=== PATIENT | male | born 1930 | race Caucasian/White ===

== ENCOUNTER 2016-09-11 11:20 | Outpatient (CLI) | payer MEDICARE, OTHER | END 2016-09-11 23:59 | DX: D64.9 Anemia, unspecified (principal); Z79.899 Other long term (current) drug therapy; M19.90 Unspecified osteoarthritis, unspecified site ==

== ENCOUNTER 2017-08-12 10:58 | Outpatient (CLI) | payer MEDICARE, OTHER | END 2017-08-12 10:59 | disposition home or self-care (01) | LOC: LAB.N 10:58 | PROVIDERS: ATTEND Urology | DX: Z85.46 Personal history of malignant neoplasm of prostate (principal) | CPT/HCPCS: 36415; 84153 ==

== ENCOUNTER 2017-10-09 08:00 | Outpatient (CLI) | payer MEDICARE, OTHER ==
[2017-10-09 13:08] LABS: BASOPHILS % (AUTO) 0.2 %; EOSINOPHILS # (AUTO) 0.1 10^3/uL (0.0-0.7); EOSINOPHILS % (AUTO) 1.9 %; HGB - HEMOGLOBIN 13.9 g/dL (14.0-18.0); LYMPHOCYTES # (AUTO) 1.1 10^3/uL (1.5-3.5); LYMPHOCYTES % (AUTO) 29.9 %; MEAN CORPUSCULAR HGB CONC 33.9 g/dL (32.0-36.0); MEAN CORPUSCULAR VOLUME 97.4 fL (80.0-94.0); MEAN PLATELET VOLUME 7.9 fL (7.4-11.4); MONOCYTES # (AUTO) 0.4 10^3/uL (0.0-1.0); MONOCYTES % (AUTO) 11.9 %; NEUTROPHILS # (AUTO) 2.1 10^3/uL (1.5-6.6); NEUTROPHILS % (AUTO) 56.1 %; PLT - PLATELET COUNT 179 10^3/uL (130-450); RED CELL DISTRIBUTION WIDTH 12.8 % (12.0-15.0); WHITE BLOOD COUNT 3.7 x10^3/uL (4.8-10.8)
[2017-10-09 13:09] LABS: ALBUMIN 4.3 g/dL (3.2-5.5); ALBUMIN/GLOBULIN RATIO 1.4 (1.0-2.2); CALCIUM 9.1 mg/dL (8.5-10.3); CREATININE 1.1 mg/dL (0.6-1.2); TOTAL PROTEIN 7.3 g/dL (6.7-8.2)
== END 2017-10-09 08:01 | disposition home or self-care (01) ==
LOC: LAB.N 08:00
PROVIDERS: ATTEND Physician Assistant Medical
DX: Z79.899 Other long term (current) drug therapy (principal)
CPT/HCPCS: 36415; 80053; 85025

== ENCOUNTER 2017-11-02 12:18 | Outpatient (CLI) | payer MEDICARE, OTHER ==
[2017-11-02] MEDS ORDERED: GADOBUTROL 10 MMOL/10 ML VIAL ONE (13:25)
[2017-11-02] MEDS ORDERED: GADOBUTROL 10 MMOL/10 ML VIAL IV ONE (13:46)
--- NOTE | 2017-11-02 16:59 | MRI Report ---
MRI LUMBAR SPINE WITHOUT AND WITH CONTRAST EXAM DATE: 11/02/2017. INDICATION: 87-year-old male with bilateral leg pain. History of osteoarthritis. History of prostate cancer. TECHNIQUE: 1. Sagittal STIR, T1 and T2. 2. Axial T1 and T2. 3. 8 cc IV Gadavist. T1 axial and fat-saturated T1 sagittal. COMPARISON: None. FINDINGS: There appear to be 5, wwb-wul-giqilai, lumbar-type vertebrae. Axial images demonstrate a minor, dextroconvex scoliosis with apex at about L4. In the sagittal plane there is straightening of the lumbar alignment with minimal lumbar lordosis. There is minor retrolis thesis of L3 on L4. Alignment is otherwise unremarkable. There is mild to moderate anterior wedging of the L4 vertebral body, consistent with the sequela of o ld healed superior endplate compression fracture. No retropulsion is demonstrated. There is minimal a nterior wedging of T12 and L1. The vertebral body heights are otherwise preserved. No evidence of rec ent compression fracture. Numerous, T1/T2-hyperintense foci are demonstrated throughout the imaged spine, consistent with inhom ogeneous fatty marrow replacement and/or multiple intraosseous hemangiomata. The large, T1-hyperinten se lesion replacing almost all of the marrow signal in the left side of the L2 vertebral body represe nts an hemangioma. There is minor, reactive marrow edema surrounding a Schmorl node deformity in the inferior endplate of T11 with enhancement. Marrow signal intensity is otherwise unremarkable. In part icular, no pathologic marrow signal is identified. The conus terminates in an appropriate fashion at about the L1-L2 disk level. There is no abnormal th ickening or lipomatous change of the filum. Axial Images: L1-L2: Minimal disk bulge. No spinal canal or foraminal stenosis. L2-L3: Minor, intraforaminal disk bulge or protrusion bilaterally. There appears to be early degenera tive facet arthrosis. Minimal bony hypertrophy. Mild redundancy of the ligamenta flava. Mass effect o n the dorsal aspect of the thecal sac without significant-appearing spinal stenosis. Mild foraminal n arrowing. L3-L4: Retrolisthesis. Circumferential disk bulge with associated minor posterior osteophyte. Broad-b ased, intra-/extraforaminal extrusions with associated, minor intraforaminal osteophyte. Degenerative facet arthrosis with enhf-et-kyzsnsvu bony hypertrophy. Moderate to marked redundancy of the ligamen ta flava. There is subarticular zone narrowing bilaterally, worse on the right than the left. However , no definite impingement of traversing right L4 nerve root is demonstrated. No significant central z one spinal stenosis. Lutl-jo-clwnjukw foraminal stenoses. On the left, a bony spur arising from the s uperior articular process of L4 projects into the foramen and appears to contact the posterior surfac e of the exiting L3 nerve root. The perineural fat is partially effaced. No edith compression of the nerve root is identified. L4-L5: Small left intra-/extraforaminal protrusion. Larger, posterolateral and intra-/extraforaminal protrusion. Degenerative facet arthrosis with mild bony hypertrophy. Mild to moderate redundancy of t he ligamenta flava. No spinal stenosis. Mild left and mild to moderate right foraminal stenoses. The L4 nerve roots appear to exit noncompressed. L5-S1: Broad-based intra-/extraforaminal extrusions with associated, minor intraforaminal osteophyte. Early degenerative facet arthrosis. No significant bony hypertrophy. No spinal stenosis. Minimal for aminal narrowing. No abnormal enhancement is demonstrated. IMPRESSION: 1. Tkbm-fl-terpgiva anterior wedging of L4 vertebral body, consistent with the sequela of old healed superior endplate compression fracture. There is minimal anterior wedging of T12 and L1. No evidence of recent lumbar spine compression fracture. 2. Degenerative disk and facet changes are seen throughout the lumbar spine as documented in detail a teressa. There are associated central, subarticular and foraminal zone stenoses. The most significant st enoses are as follows: A. At L3-L4 there is right greater than left subarticular zone (lateral recess) stenosis. However, no definite impingement of traversing right L4 nerve root is demonstrated. B. At L3-L4 on the left a bony spur arising from the superior articular process of L4 projects into t he foramen and contacts the posterior surface of the left L3 nerve root. This is a potential cause fo r irritation or mild impingement of the left L3 nerve root. Recommend clinical correlation for possib le left L3 radiculitis/radiculopathy. 3. No other significant stenosis is demonstrated and no other potential neural irritation or impingem ent is identified. 4. There is mild to moderately advanced fatty atrophy in the posterior paraspinal musculature. Referring Provider Line: [phone] SITE ID: [id number]
== END 2017-11-02 12:19 | disposition home or self-care (01) ==
LOC: DI 12:18
PROVIDERS: ATTEND Physician Assistant Medical
DX: M51.26 Other intervertebral disc displacement, lumbar region (principal); M47.896 Other spondylosis, lumbar region; M51.36 Other intervertebral disc degeneration, lumbar region; M48.56XA Collapsed vertebra, not elsewhere classified, lumbar region, initial encounter for fracture; M48.54XA Collapsed vertebra, not elsewhere classified, thoracic region, initial encounter for fracture; M43.16 Spondylolisthesis, lumbar region; M47.897 Other spondylosis, lumbosacral region; M48.061 Spinal stenosis, lumbar region without neurogenic claudication
CPT/HCPCS: 72158; A9585

== ENCOUNTER 2018-11-04 08:00 | Outpatient (CLI) | payer MEDICARE, OTHER ==
[2018-11-04 14:32] LABS: BASOPHILS % (AUTO) 0.4 %; EOSINOPHILS % (AUTO) 1.8 %; HGB - HEMOGLOBIN 13.9 g/dL (14.0-18.0); LYMPHOCYTES % (AUTO) 34.8 %; MEAN CORPUSCULAR HEMOGLOBIN 32.5 pg (27.0-31.0); MEAN CORPUSCULAR HGB CONC 33.4 g/dL (32.0-36.0); MEAN CORPUSCULAR VOLUME 97.4 fL (80.0-94.0); MEAN PLATELET VOLUME 8.6 fL (7.4-11.4); MONOCYTES % (AUTO) 12.1 %; NEUTROPHILS % (AUTO) 50.9 %; PLT - PLATELET COUNT 184 10^3/uL (130-450); RED BLOOD COUNT 4.28 10^6/uL (4.70-6.10); RED CELL DISTRIBUTION WIDTH 12.4 % (12.0-15.0); WHITE BLOOD COUNT 2.7 x10^3/uL (4.8-10.8)
[2018-11-04 14:48] LABS: ALBUMIN 4.2 g/dL (3.2-5.5); ALBUMIN/GLOBULIN RATIO 1.4 (1.0-2.2); ALKALINE PHOSPHATASE 62 IU/L (42-121); ALT ALANINE AMINOTRANSFERASE 15 IU/L (10-60); AST ASPARTATE AMINOTRANSFERASE 20 IU/L (10-42); BILIRUBIN,TOTAL 0.8 mg/dL (0.2-1.0); BUN - BLOOD UREA NITROGEN 14 mg/dL (6-20); CALCIUM 9.2 mg/dL (8.5-10.3); CARBON DIOXIDE - CO2 25 mmol/L (21-32); CHLORIDE 100 mmol/L (101-111); CHOLESTEROL 142 mg/dL; GFR - MDRD 71 (>89); GLUCOSE 96 mg/dL (70-100); HDL CHOLESTEROL 67 mg/dL; LDL CHOLESTEROL,CALCULATED 67 mg/dL; SODIUM 137 mmol/L (135-145); TOTAL PROTEIN 7.1 g/dL (6.7-8.2); VLDL CHOLESTEROL 8 mg/dL
[2018-11-04 14:49] LABS: CHOL/HDL RATIO 2.1 (<5.0)
[2018-11-04 14:53] LABS: PSA FREE 0.921 ng/mL (0.16-2.81)
[2018-11-04 14:54] LABS: PSA TOTAL 11.739 ng/mL (0.000-2.000)
[2018-11-04 15:59] LABS: ABNORMAL LYMPHS % (MANUAL) 0 %; BAND NEUTROPHILS % (MANUAL) 2 %; LYMPHOCYTES % (MANUAL) 26 %; MONOCYTES # (MANUAL) 0.3 10^3/uL (0.0-1.0); NEUTROPHILS # (MANUAL) 1.4 10^3/uL (1.5-6.6); NEUTROPHILS % (MANUAL) 50 %
[2018-11-04 16:00] LABS: DIFFERENTIAL COMMENT MANUAL DIFFERENTIAL; PLATELET ESTIMATE, MANUAL NORMAL (130-450,000) (NORMAL); PLATELET MORPHOLOGY NORMAL APPEARANCE (NORMAL); RBC MORPHOLOGY (MULTIPLE) NORMAL APPEARANCE (NORMAL)
== END 2018-11-04 23:59 | disposition home or self-care (01) ==
LOC: LAB.N 08:00
PROVIDERS: ATTEND Nurse Practitioner
DX: Z00.00 Encounter for general adult medical examination without abnormal findings (principal); C61 Malignant neoplasm of prostate; Z79.899 Other long term (current) drug therapy
CPT/HCPCS: 36415; 80053; 80061; 83721; 84153; 84154; 84443; 85025

== ENCOUNTER 2018-12-07 09:30 | Outpatient (CLI) | payer MEDICARE, OTHER ==
[2018-12-07] MEDS ORDERED: IOVERSOL 320 50 ML VIAL ONE (09:49)
[2018-12-07] MEDS ORDERED: IOVERSOL 320 100 ML VIAL IVP ONE ×2 (09:49→11:43)
[2018-12-07] MEDS ORDERED: IOVERSOL 320 50 ML VIAL PO ONE (11:43)
--- NOTE | 2018-12-07 14:51 | CT Report ---
Reason: PROSTATE CA Procedure Date: 12/07/2018 Accession Number: [id number] / [id number] Procedure: CT - Abdomen/Pelvis W CPT Code: FULL RESULT: EXAM: CT ABDOMEN AND PELVIS EXAM DATE: 12/07/2018 11:42 AM. CLINICAL HISTORY: Prostate CA. COMPARISONS: LUMBAR SPINE W/O 11/02/2017 12:45 PM BONE SCAN 12/07/2018 12:27 PM. TECHNIQUE: Routine helical CT imaging was performed through the abdomen and pelvis. IV contrast: OPTI 320 100 mL. Enteric contrast: Yes. Reconstructions: Coronal and sagittal. In accordance with CT protocol optimization, one or more of the following dose reduction techniques were utilized for this exam: automated exposure control, adjustment of mA and/or KV based on patient size, or use of iterative reconstructive technique. FINDINGS: Lung Bases: Bilateral dependent changes at the lung bases, scarring would be difficult to exclude. Liver: There are bilateral hepatic hypodensities which are too small to characterize. The left lobe of the liver is diminutive in size. Gallbladder/Bile Ducts: Unremarkable. Spleen: Normal. Pancreas: Normal. Adrenal Glands: Normal. Kidneys: Normal. No masses or hydronephrosis. Peritoneal Cavity/Bowel: There is no bowel obstruction or free fluid or free air. There is no lymphadenopathy. Pelvic Organs: Arising from the inferior right portion of the prostate is a 3.6 x 3.2 cm hypoenhancing relatively to the remaining prostate soft tissue mass as seen on image 88 series 3, relationship to prostate is best seen on image 31 of series 5 coronally. There is no pelvic lymphadenopathy by size criteria. Vasculature: No aneurysms or other significant abnormality. Bones: L2 vertebral body hemangioma. Centrally within the L5 vertebral body is a questionable lytic lesion which appeared T2 hyperintense on the 2018 MRI that also demonstrated diffuse abnormality of marrow signal. The patient is osteopenic. While no definite aggressive osseous lesions are seen, assessment for disease in this setting is difficult. Other: None. IMPRESSION: Masslike nodule arising from the prostate as described. Limited assessment due to markedly decreased sensitivity for osseous metastases. See bone scan performed today. RADIA
--- NOTE | 2018-12-07 16:21 | Nuclear Medicine Report ---
Reason: PROSTATE CANCER Procedure Date: 12/07/2018 Accession Number: [id number] / [id number] Procedure: NM - Bone Whole Body CPT Code: FULL RESULT: EXAM: BONE SCAN EXAM DATE: 12/07/2018 02:10 PM. CLINICAL HISTORY: PROSTATE CANCER. COMPARISON: ABDOMEN/PELVIS W/ 12/07/2018 11:34 AM (report not available). TECHNIQUE: Following the intravenous administration of 31 mCi of technetium 99m MDP and an appropriate delay, a whole-body scan was performed in anterior and posterior projections. Site-specific spot views of the region of interest were obtained in various projections. FINDINGS: Exam Quality: Normal overall osseous radiotracer uptake. Physiological tracer uptake in bilateral collecting systems. Skull: No focal uptake. Thorax: There is a small focus of mild uptake corresponding with an old fracture deformity of the right anterior fifth rib. There is positive uptake within the soft tissue nodule adjacent to the anterior fifth rib. Pelvis: No focal lesions. Spine: No suspicious focal uptake in the cervical or thoracic or lumbar spine. There is degenerative right-sided L5-S1 facet uptake. Extremities: There is increased uptake in both knees, presumably degenerative. IMPRESSION: No findings highly concerning for skeletal metastatic disease. RADIA
== END 2018-12-07 09:31 | disposition home or self-care (01) ==
LOC: DI 09:30
PROVIDERS: ATTEND Internal Medicine Hematology & Oncology
DX: C61 Malignant neoplasm of prostate (principal)
CPT/HCPCS: 74177; 78306; Q9967

== ENCOUNTER 2019-04-18 10:29 | Outpatient (CLI) | payer MEDICARE, OTHER ==
--- NOTE | 2019-04-18 13:39 | Mammography Report ---
Reason: BREAST LUMP Procedure Date: 04/18/2019 Accession Number: [id number] / [id number] Procedure: [facility] - Diagnostic Dig Bilat CPT Code: Final Report FULL RESULT: EXAM: Diagnostic Dig Bilat DATE: 04/18/2019 11:30 AM CLINICAL HISTORY: EXAM: Diagnostic Dig Bilat DATE: 04/18/2019 11:30 AM CLINICAL HISTORY: The patient is an 88-year-old male presenting with a palpable lump in the left retroareolar position. TECHNIQUE: (B) - Bilateral CC and MLO views were obtained. COMPARISON: None PARENCHYMAL PATTERN: FINDINGS: RIGHT BREAST: There are no suspicious masses, calcifications or areas of distortion. LEFT BREAST: There is a hyperdense lobulated mass in the subareolar position spanning 1.6 cm, at the site of palpable concern. The remainder of the breast is unremarkable. LEFT BREAST ULTRASOUND: TECHNIQUE: A high frequency transducer was utilized to evaluate the area of palpable concern (subareolar position) and the axilla. Doppler performed. Digital Photographer static images obtained. FINDINGS: There is a hypoechoic, lobulated vascular mass in the retroareolar position measuring approximately 16 x 13 x 15 mm. This corresponds to the palpable and mammographic finding. Recommend targeted pathologic evaluation, amenable to ultrasound-guided biopsy. There are no enlarged axillary lymph nodes. IMPRESSION: Suspicious findings. BI-RADS category 4. RECOMMENDATION: (BIOPSY) - recommend targeted ultrasound-guided core biopsy. BI-RADS CATEGORY: (4) - Suspicious. STANDARD QUALIFYING STATEMENTS: 1. This examination was not reviewed with the aid of Computer-Aided Detection (CAD). 2. A negative or benign imaging report should not preclude biopsy if clinically suspicious findings are present. 3. Dense breasts may obscure an underlying neoplasm.
== END 2019-04-18 10:30 | disposition home or self-care (01) ==
LOC: DI 10:29
PROVIDERS: ATTEND Nurse Practitioner
DX: N63.42 Unspecified lump in left breast, subareolar (principal); C61 Malignant neoplasm of prostate; Z85.828 Personal history of other malignant neoplasm of skin
CPT/HCPCS: 76642; 77066

== ENCOUNTER 2019-05-03 11:18 | Outpatient (CLI) | payer MEDICARE, OTHER ==
[2019-05-03] MEDS ORDERED: BUFFERED LIDOCAINE 10 ML SYRINGE ONE ×2 (11:38→12:31)
[2019-05-03] MEDS: BUFFERED LIDOCAINE 10 ML SYRINGE IU ONE (13:40)
--- NOTE | 2019-05-03 15:44 | Ultrasound Report ---
Reason: ABNORMAL MAMMOGRAM Procedure Date: 05/03/2019 Accession Number: [id number] / [id number] Procedure: US - Biopsy Breast Core CPT Code: Final Report FULL RESULT: PROCEDURE: Ultrasound-guided needle biopsy left breast mass. CLINICAL DATA: Targeted mass measuring 1.6 cm with smooth margins in the 12 o'clock axis of the left breast. Informed consent was obtained. Using standard aseptic technique, both 1% buffered lidocaine and Sensorcaine were injected into the left breast for local anesthesia. A small garrett was made in the skin with a #11 blade. A 12-gauge [employer] vacuum-assisted device was used to obtain 3 specimens. A specialized biopsy marker clip was placed into the biopsy cavity under ultrasound guidance. The patient was taken to separate mammography machine and a two-view digital mammography was performed to verify the clip placement and any complications. The mammography showed clip placement within the mass. The wound was dressed and ice applied. The patient was observed for approximately 15 minutes, then was discharged from diagnostic imaging Department in good condition following instructions on wound care and obtaining biopsy results. The patient is scheduled to receive the biopsy results from the referring physician. The tissue was sent for histologic analysis. IMPRESSION: Ultrasound-guided biopsy of the left breast. AN ADDENDUM WILL BE MADE TO THIS REPORT WHEN PATHOLOGY IS REVIEWED TO ESTABLISH CONCORDANCE.
== END 2019-05-03 11:19 | disposition home or self-care (01) ==
LOC: DI 11:18
PROVIDERS: ATTEND Nurse Practitioner
DX: C50.822 Malignant neoplasm of overlapping sites of left male breast (principal); Z17.0 Estrogen receptor positive status [ER+]
CPT/HCPCS: 19083

== ENCOUNTER 2019-05-26 13:30 | Outpatient (CLI) | payer MEDICARE, OTHER ==
--- NOTE | 2019-05-26 15:59 | XRAY Report ---
Reason: LT BREAST CANCER Procedure Date: 05/26/2019 Accession Number: [id number] / [id number] Procedure: XR - Chest 2 View X-Ray CPT Code: 96327 Final Report FULL RESULT: EXAM: CHEST RADIOGRAPHY EXAM DATE: 05/26/2019 02:42 PM. CLINICAL HISTORY: Breast cancer diagnosed one month ago. Planned surgery. No new symptoms. COMPARISON: CHEST 2 VIEW PA/LAT 03/28/2014 11:05 AM. TECHNIQUE: 2 views. FINDINGS: Lungs/Pleura: No focal opacities evident. No pleural effusion. No pneumothorax. Normal volumes. Mediastinum: Heart and mediastinal contours are unremarkable. Other: Redemonstration of apparent colonic interposition underneath the right hemidiaphragm. IMPRESSION: No acute cardiopulmonary abnormality. RADIA
== END 2019-05-26 13:31 | disposition home or self-care (01) ==
LOC: DI 13:30
PROVIDERS: ATTEND Surgery
DX: Z01.818 Encounter for other preprocedural examination (principal); C50.922 Malignant neoplasm of unspecified site of left male breast
CPT/HCPCS: 71046; 93005

== ENCOUNTER 2019-06-07 07:55 | Day surgery (SDC) | payer MEDICARE, OTHER ==
[~2019-06-07 07:55] MED LIST: BUPIVACAINE 0.5% PF 30 ML VIAL ONE; LIDOCAINE 1%-EPI 1:100000 20 ML MDV ONE
[2019-06-07] MEDS ORDERED: CEFAZOLIN SODIUM IN 0.9 % NACL 2 GM/100 ML BAG IV ONE (08:07)
[2019-06-07] MEDS ORDERED: LACTATED RINGERS 1,000 ML IV ONE ×2 (08:13→13:50)
--- NOTE | 2019-06-07 09:25 | ANESTHESIA ---
Pre-Anesthesia VS, & Labs - Diagnosis Left breast cancer - Procedure Left simple mastectomy, sentinel node biopsy Vital Signs: Temp Pulse Resp BP Pulse Ox 36.4 C L 92 16 169/88 H 97 06/07/19 08:14 06/07/19 08:14 06/07/19 08:14 06/07/19 08:14 06/07/19 08:14 Height 5 ft 10 in Weight (kg) 79.7 kg Body Mass Index 23.9 - NPO >8 hours, Other (4 oz coffee at 0600) Home Medications and Allergies Home Medications: Ambulatory Orders Zolpidem [Ambien] 5 - 10 mg PO HS PRN 05/26/19 Hydrocodone/Acetaminophen [Hydrocodone-Acetamin 10-325 mg] 1 tab PO PRN PRN 11/30/18 Aspirin 81 mg PO DAILY 12/21/18 Cyanocobalamin (Vitamin B-12) [Vitamin B-12] 1,000 mcg PO DAILY 12/21/18 Zolpidem [Ambien] 5 - 10 mg PO HS PRN 05/26/19 Allergies/Adverse Reactions: Allergies Allergy/AdvReac Type Severity Reaction Status Date / Time No Known Drug Allergies Allergy Verified 03/22/19 15:25 Anes History & Medical History - Anesthetic History Anesthesia Complications: reports: No previous complications Family history of Anesthesia Complications: Denies Family history of Malignant Hyperthermia: Denies - Medical History Cardiovascular: reports: None Pulmonary: reports: None Gastrointestinal: reports: None Urinary: reports: None Neuro: reports: None Musculoskeletal: reports: Osteoarthritis Endocrine/Autoimmune: reports: None Blood Disorders: reports: Anemia Skin: reports: None Smoking Status: Former smoker Psychosocial: reports: No issues indicated - Surgical History General: Colonoscopy Eyes Ears Nose Throat (EENT): Cataracts, Tonsil/Adenoidectomy Cardiothoracic:  Urologic: Prostatic surgery Exam General: Alert, Oriented x3, Cooperative Dental: TMJ, Partials Upper Mouth Opening: Greater than 4 Fingerbreadths Neck Mobility: Normal Mallampati classification: II Thyromental Distance: greater than 6 cm Respiratory: Lungs clear Cardiovascular: Regular rate Neurological: Normal speech Mental/Cognitive Status: Alert/Oriented X3 Cognitive Status: Within normal limits Plan Anesthesia Type: General Consent for Procedure(s) Verified and Reviewed: Yes Code Status: Attempt Resuscitation ASA classification: 2-Mild systemic disease Is this case an emergency?: No
[2019-06-07] MEDS ORDERED: LIDOCAINE 1%-EPI 1:100000 20 ML MDV ONE (11:31)
[2019-06-07] MEDS ORDERED: BUPIVACAINE 0.5% PF 30 ML VIAL ONE (11:31)
[2019-06-07] MEDS ORDERED: ACETAMINOPHEN 1,000 MG/100 ML 100 ML IV ONE ×2 (12:04→13:04)
[2019-06-07] MEDS ORDERED: fentaNYL 100 MCG/2 ML VIAL IVP ONE (12:04)
[2019-06-07] MEDS ORDERED: PHENYLEPHRINE 10 MG/ML VIAL IV ONE (12:04)
[2019-06-07] MEDS ORDERED: SUCCINYLCHOLINE 200 MG/10 ML VIAL IVP ONE (12:04)
[2019-06-07] MEDS ORDERED: MIDAZOLAM 2 MG/2 ML VIAL IVP ONE (12:04)
[2019-06-07] MEDS ORDERED: DEXAMETHASONE 4 MG/ML VIAL IVP ONE (12:04)
[2019-06-07] MEDS ORDERED: HYDROmorphone 1 MG/ML CARPUJECT IVP ONE (12:04)
[2019-06-07] MEDS ORDERED: LIDOCAINE-MPF 2% 5 ML VIAL IM ONE (12:04)
[2019-06-07] MEDS ORDERED: ONDANSETRON 4 MG/2 ML VIAL IVP ONE (12:04)
[2019-06-07] MEDS ORDERED: PROPOFOL 200 MG/20 ML VIAL IVP ONE (12:04)
--- NOTE | 2019-06-07 12:17 | Nuclear Medicine Report ---
Reason: LT BREAST CA Procedure Date: 06/07/2019 Accession Number: [id number] / [id number] Procedure: NM - Lymph Node Scintigraphy CPT Code: Final Report FULL RESULT: EXAM: SENTINEL LYMPH NODE RADIOTRACER INJECTION WITH IMAGING EXAM DATE: 06/07/2019 11:20 AM. CLINICAL HISTORY: Left breast cancer. COMPARISON: None. TECHNIQUE: The injection site of the left breast was cleansed according to protocol. Next, a total of 0.45 mCi Tc-99m sulfur colloid in 1 cc saline was injected into the same site. After appropriate delay, the patient was imaged according to the protocol. FINDINGS: Approximately 30 minutes following injection a single axillary lymph node is visualized with progressive uptake at 45 and 60 minutes. The patient tolerated the procedure well. IMPRESSION: 1. [place] lymph node injection, without complication. 2. 1 focus in the axillary drainage pathway, compatible with sentinel lymph node. RADIA
[2019-06-07] MEDS ORDERED: BUPIVACAINE 0.5% PF 10 ML VIAL SUBQ ONE (12:44)
[2019-06-07] MEDS ORDERED: LIDOCAINE 1%-EPI 1:100000 20 ML MDV SUBQ ONE (12:44)
--- NOTE | 2019-06-07 13:18 | OPERATIVE REPORT ---
Operative Report - General Procedure Date: 06/07/19 Planned Procedure: Left modified radical mastectomy Pre-Op Diagnosis: Biopsy-proven left breast cancer Procedure Performed: Left modified radical mastectomy Post Op Diagnosis: Biopsy-proven left breast cancer - Procedure Note Primary Surgeon: Teresa Anesthesia Provider: FER Pal Anesthesia Technique: General ET tube, Local, Regional block Pathology: Left breast in formalin to pathology Estimated Blood Loss (mL): 25 Drain/Tube Type: Roni drain (19 F Black drain in the inframammary pocket) Indications: Biopsy proven left breast cancer Findings: No adherence to the pectoralis muscle Complications: None apparent - Other Other Information/Narrative: After obtaining informed consent, the patient is brought to the operating room and placed in the supine position on the operating table. Following successful induction of general endotracheal anesthesia, appropriate padding of all bony prominences, and placement of appropriate monitors, the left chest and axilla were prepped and draped in standard surgical fashion. A timeout was held per scope protocol. All elements of the surgical safety checklist were followed before, during, and after the procedure. An elliptical incision was fashioned around the nipple areolar complex to include the palpable mass and specifically the skin over the palpable mass. This screw was created with a 15 blade scalpel. The breast tissue was then carefully dissected off of the dermis anteriorly superiorly to approximately 3 cm inferior to the clavicle medially, to the sternum, inferiorly to the inframammary fold, and laterally to the border of the latissimus muscle. The breast was then removed in a medial to lateral fashion being careful to include the retromammary bursa and the pectoral fascia. It was peeled off until the specimen was held only by the axillary tail. We carefully included this part in the specimen by performing a level 1 and level 2 axillary dissection. All afferent and efferent lymphatics and vasculature were addressed with clips prior to division. The axillary fat pad and dayana pocket was carefully freed from the pectoralis muscle anteriorly and medially, the chest wall medially the latissimus muscle posteriorly and the skin more laterally. The axillary vein was identified and tributaries to the axillary vein were ligated with clips the axillary vein itself was not skeletonized. The long thoracic nerve of Zapata was identified in the posterior portion of the mid axillary line and was carefully preserved. Once the specimen was completely freed, the specimen was passed from the table. The wound was checked for hemostasis and irrigated with warm water. Once we were satisfied that we obtained hemostasis, A 19 Sinhala Roni drain was placed in the inframammary pocket extending into the left axilla. It was brought out inferior medially and sewn into place with a nylon suture. The wou nd was then closed in 2 layers with Vicryl Monocryl suture. All sponge, needle, and instrument counts were correct at the conclusion of the case. The patient was allowed awaken from anesthesia without difficulty and taken to the postanesthesia care unit in good condition.
[2019-06-07] MEDS ORDERED: ACETAMINOPHEN 325 MG TABLET PO PRN (13:22)
[2019-06-07] MEDS ORDERED: IBUPROFEN 600 MG TABLET PO PRN (13:22)
[2019-06-07] MEDS ORDERED: ONDANSETRON 4 MG/2 ML VIAL IVP PRN (13:22)
[2019-06-07] MEDS ORDERED: oxyCODONE 5 MG TABLET PO PRN (13:22)
[2019-06-07] MEDS: HYDROmorphone 0.5 MG/0.5 ML SYRINGE ONE ×2 (13:45→13:47)
[2019-06-07] MEDS ORDERED: oxyCODONE 5 MG TABLET ONE (14:44)
[2019-06-07 15:22] VITALS: BP 103/68
== END 2019-06-07 07:56 | disposition home or self-care (01) ==
LOC: SDS 07:55
PROVIDERS: ATTEND Surgery
PROC: 07B60ZZ Excision of Left Axillary Lymphatic, Open Approach (ICD-10-PCS; 2019-06-07)
PROC: 0HBU0ZZ Excision of Left Breast, Open Approach (ICD-10-PCS; principal; 2019-06-07 10:45)
DX: C50.922 Malignant neoplasm of unspecified site of left male breast (principal); C77.3 Secondary and unspecified malignant neoplasm of axilla and upper limb lymph nodes; Z17.0 Estrogen receptor positive status [ER+]; Z87.891 Personal history of nicotine dependence
CPT/HCPCS: 19307; 78195; A9270; J0131; J0330; J0690; J1170; J7120